=== PATIENT | female | born 2000 | race Two or more races ===

== ENCOUNTER 2025-01-29 08:34 | Emergency (ER) | payer SELFPAY ==
[2025-01-29] MEDS: Lidocaine 2% Viscous Solution 15 ML UD PO ONE (09:21)
[2025-01-29] MEDS: Benzocaine 20% Topical Spray UD MUCMEM ONE ×2 (09:21)
== END 2025-01-29 10:43 | disposition home or self-care (01) ==
LOC: MW.ED 08:34
DX: K08.89 Other specified disorders of teeth and supporting structures (principal)
CPT/HCPCS: 99282; A9270; J3490; 99283